=== PATIENT | female | born 1995 | race Caucasian/White ===

== ENCOUNTER → 2018-09-24 10:47 | Outpatient (CLI) | payer BC, SELFPAY ==
[2018-09-24 13:03] LABS: Follicle Stimulating Hormone 1.9 mIU/mL; Luteinizing Hormone 7.2 mIU/mL; Thyroid Stim Hormone (TSH) 1.63 uIU/mL (0.358-3.74)
[2018-09-26 09:54] LABS: DHEA Sulfate 179.6 ug/dL (110.0-431.7)
== END ==
PROVIDERS: Family Provider Family Medicine; PCP Family Medicine; Referring Provider Family Medicine; Visit Provider Family Medicine
DX: N94.10 Unspecified dyspareunia (principal)
CPT/HCPCS: 36415; 82627; 83001; 83002; 84443; 82626

== ENCOUNTER → 2019-05-20 | Outpatient (CLI) | payer OTHER, BC, SELFPAY ==
[2019-05-23 10:48] LABS: Probe Check PASS; Sample Adequacy Control PASS; Specimen Processing Control PASS; Trichomonas Vag DNA by PCR Negative (Negative)
[2019-05-23 10:58] LABS: Chlamydia Trachomatis by PCR Negative (Negative); Neisserai gonorrhoeae by PCR Negative (Negative); Probe Check PASS; Sample Adequacy Control PASS; Specimen Processing Control PASS
== END | disposition home or self-care (01) ==
LOC: LABSPEC 13:58
PROVIDERS: Visit Provider Obstetrics & Gynecology
DX: A59.9 Trichomoniasis, unspecified (principal); Z11.3 Encounter for screening for infections with a predominantly sexual mode of transmission
CPT/HCPCS: 87491; 87591; 87661

== ENCOUNTER → 2020-10-29 16:18 | Outpatient (CLI) | payer OTHER, SELFPAY ==
[2016-03-02 15:16] VITALS: BMI 26.5
[2020-10-29 17:22] LABS: Mean Corp Hgb Conc 33.3 g/dL (32-36); Mean Corpuscular Hgb 29.7 pg (27.0-32.0); Mean Platelet Vol. 9.9 fl (6.2-12.0); Platelet Count 301 K/mm3 (150-450); RBC Distribution Width CV 12.6 % (11.6-14.6); RBC Distribution Width SD 41.1 fl (35.1-43.9); Red Blood Count 4.72 M/mm3 (4.2-5.4); White Blood Count 10.4 K/mm3 (4.4-11.0)
[2020-10-29 17:40] LABS: Progesterone Level 0.53 ng/mL (See Comment)
[2020-10-29 17:49] LABS: Anion Gap 4 (5-15); BUN 12 mg/dL (7-18); BUN/Creat Ratio 17.3 RATIO (10-20); Chloride 106 mmol/L (98-107); Creatinine, Serum 0.69 mg/dL (0.55-1.02); EST Glomerular Filtration Rate 110 mL/min (>60); Est Glom Filt Rate - Afr Amer 133 mL/min (>60); Follicle Stimulating Hormone 3.2 mIU/mL; Glucose 82 mg/dL (74-106); Luteinizing Hormone 5.4 mIU/mL; Potassium 3.5 mmol/L (3.5-5.1); Prolactin 12.8 ng/mL; Sodium Level 138 mmol/L (136-145); T4 Free Direct 0.99 ng/dL (0.76-1.46); Thyroid Stim Hormone (TSH) 1.27 uIU/mL (0.358-3.74)
== END ==
PROVIDERS: Visit Provider Obstetrics & Gynecology
DX: Q51.0 Agenesis and aplasia of uterus (principal)
CPT/HCPCS: 36415; 80048; 82670; 83001; 83002; 84144; 84146; 84439; 84443; 85027

== ENCOUNTER → 2022-08-12 | Outpatient (CLI) | payer OTHER, SELFPAY | END | disposition home or self-care (01) | PROVIDERS: Visit Provider Family Medicine | DX: N39.0 Urinary tract infection, site not specified (principal) | CPT/HCPCS: 87086; 87088 ==

== ENCOUNTER 2024-09-12 14:48 | Emergency (ER) | payer OTHER, SELFPAY ==
[2024-09-12 14:49] VITALS: BP 123/68; PULSE 72; RESP 16; TEMP 36.4; O2SAT 100
--- NOTE | 2024-09-12 15:30 | RAD_ITS ---
PROCEDURE: ANKLE MIN 3 VIEWS REASON FOR EXAM: Trauma TECHNIQUE: 3 views of the right ankle COMPARISON: None. FINDINGS: RIGHT ANKLE: Distal right comminuted fibular fracture. Right medial malleolar fracture. Mild anterior dislocation of the fibula and medial malleolar fracture. Ankle mortise is intact. Mild soft tissue swelling about the medial malleolus RAD/Ankle min 3 Views IMPRESSION: Distal right comminuted fibular fracture and right medial malleolar fracture wi th mild anterior displacement. Reading Location: [facility]
[2024-09-12] MEDS: oxyCODONE 5 MG Tablet PO (17:51)
--- NOTE | 2024-09-12 17:52 | CT_ITS ---
PROCEDURE: Noncontrast CT of the right ankle. REASON FOR EXAM: Right ankle fractures TECHNIQUE: Contiguous unenhanced axial CT images were obtained through the right ankle. Sagittal and coronal reformats were created. COMPARISON: Right ankle radiographs from the same day. FINDINGS: Approximately 8.1 cm from the distal tip of the fibula, there is a minimally displaced oblique slightly comminuted fracture of the distal right fibular diaphysis. There is widening of the distal tibial- fibular syndesmosis. Mildly displaced oblique fracture at the base of the medial malleolus. The distal tibia is subluxed medially a proximally 9 mm. The included tarsal bones and metatarsals, as well as the talus and calcaneus appear intact. No posterior distal tibia fracture. There is edema of the soft tissues and subcutaneous fat of the right ankle. No soft tissue gas densities are demonstrated. CT/Extremity Lower without Contra IMPRESSION: Displaced bimalleolar fracture of the right ankle as above. 9 mm medial subluxation of the distal tibia relative to the superior articular surface of the talus. No posterior distal tibial fracture. The included tarsal bones, talus, and calcaneus appear intact. One or more dose reduction techniques were used (e.g., Automated exposure contr ol, adjustment of the mA and/or kV according to patient size, use of iterative reconstruction technique). [facility]
[2024-09-12 18:22] VITALS: BP 129/72; PULSE 75; RESP 18; TEMP 36.9; O2SAT 99
--- NOTE | 2024-09-12 18:49 | EDS_ITS ---
HPI History of Present Illness Chief Complaint: Lower Extremity Injury Informant: patient Narrative Narrative: Patient is a 29-year-old female presenting after mechanical fall at work. 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 She got out of the vehicle and slipped and fell. She merely had pain in her right ankle. She came in for further evaluation. Denies any numbness or tingling. Notes that her toes do feel cold now because she has had her socks off. Did not hit her head when she fell. Not any blood thinners. Denies any past medical history. Denies any concern for . [facility] Medical History Ankle injuries Bee sting Home Medications ?Medication ?Instructions ?Recorded ?Last Taken ?Type prednisone 10 mg tablet 10 mg PO DAILY #30 tabs 04/26 11/17 Unknown Rx oxycodone 5 mg tablet 5 mg PO Q6H PRN pain 3 days #12 09/12/24 Unknown Rx tabs Allergy/AdvReac Type Severity Reaction Status Date / Time No Known Allergies Allergy Verified 05/09/24 07:13 Social History Smoking Status: Never smoker ROS ROS ED Constitutional Constitutional ED: Denies chills or fever(s) Gastrointestinal Gastrointestinal: Denies nausea or vomiting Musculoskeletal Musculoskeletal: Reports other Details: Right ankle pain Integumentary Denies rash Neurologic Neurologic: Denies paresthesias or weakness Hematologic/Lymphatic Hematologic/Lymphatic: Denies easy bleeding or easy bruising EXAM Physical Exam Const Vital Signs: 09/12/24 14:49 09/12/24 18:22 Temperature 97.6 F L 98.5 F Temperature Source Temporal Pulse Rate 72 75 Respiratory Rate 16 18 Blood Pressure 123/68 H 129/72 H Blood Pressure Mean 86 91 Pulse Ox 100 99 Oxygen Delivery Method Room Air Positive well nourished and well developed General Appearance ED: well developed and NAD HEENT Reports moist mucous membranes normocephalic and atraumatic Chest Wall inspection of chest normal Resp normal respiratory effort Cardio regular rate and regular rhythm Cardio Narrative: 2+ DP pulses Extremity Extremity Narrative: Swelling but no obvious deformity to the right ankle. Decreased range of motion of the foot secondary to pain and swelling. Significant tenderness of the ankle over the medial and lateral aspect of the malleoli. No significant bony tenderness of the foot. No tenderness over the fibular head. Normal-appearing knee. Normal range of motion. Compartments of the calf are soft. No palpable cords Neuro oriented x3, moves all extremities and no sensory deficits noted Sensorium / Orientation: alert Motor Exam: Negative for general weakness Psych mental status grossly normal Skin Skin Narrative: Very superficial abrasion noted to the anterior aspect of the forefoot MDM MDM MDM Narrative Medical decision making narrative: Patient evaluated for right ankle pain after fall. Protocol x-ray obtained reviewed by myself as well as radiology shows distal right comminuted fibular fracture and right medial malleoli are fracture with mild anterior displacement. Patient is neuro vastly intact. Did discuss the case with Dr. Walker, podiatry on-call. He does request a CT, recommends posterior slab stirrup splint, crutches and outpatient follow-up. He does agree that he does not think that ER reduction is indicated at this time. Patient is given a dose of oxycodone emergency room pain control. She declines further pain medicine at this time. Splint placed. Patient tolerated procedure well. Neurovascularly intact afterwards. Given crutches. We discharged home with prescription for oxycodone and close outpatient follow-up. Given return precautions. Counseled on splint care. Radiography Diagnostic Testing: Clinical Impression(s) from Imaging Studies Ankle X-Ray 09/12/24 15:30 IMPRESSION: Distal right comminuted fibular fracture and right medial malleolar fracture with mild anterior displacement. Reading Location: [facility] Lower Extremity CT 09/12/24 17:52 IMPRESSION: Displaced bimalleolar fracture of the right ankle as above. 9 mm medial subluxation of the distal tibia relative to the superior articular surface of the talus. No posterior distal tibial fracture. The included tarsal bones, talus, and calcaneus appear intact. One or more dose reduction techniques were used (e.g., Automated exposure control, adjustment of the mA and/or kV according to patient size, use of iterative reconstruction technique). Reading Location: [facility] Management Discussion w/another healthcare provider: [employer] Procedures Lower Extremity Splints Lower Extremity Splint: Orthoglass, Stirrup and - (Posterior slab with stirrup) Splint Fabrication: Fabricated Location: Right Discharge Plan Triage Chief Complaint: Lower Extremity Injury ED Provider: Lucille Berry Dx/Rx/DC Orders Clinical Impression: Ankle fracture, right Instructions: ED Ankle Fracture Prescriptions: New oxycodone 5 mg tablet 5 mg PO Q6H PRN (Reason: pain) 3 Days Qty: 12 0RF No Action prednisone 10 mg tablet 10 mg PO DAILY Qty: 30 0RF Rx Instructions: 4 tablets daily x3 days, then 3 tablets daily x3 days, then 2 tablets daily x3 days, then 1 tablet daily x3 days Stand Alone Forms: Work Status Form Primary Care Provider: Aileen Sequeira Referrals: Aileen Sequeira MD [Primary Care Provider] - Rustam Walker DPM [Med Staff - Active Staff] - Activity Restrictions/Additional Instructions: Use crutches. Continue to ice through the splint. Do not but weight on the right foot. Please call podiatry office tomorrow to arrange close outpatient follow-up. Likely will need surgery on your ankle. As we discussed please take stool softeners or MiraLAX while taking pain medication if needed. If possible it is okay for you to just take ibuprofen and Tylenol for pain control. Print Language: Turkish Disposition Disposition: Home, Self Care Discharge Date/Time: 09/12/24 20:13
== END 2024-09-12 20:13 | disposition home or self-care (01) ==
PROVIDERS: Emergency Provider Emergency Medicine; PCP Family Medicine; Referring Provider Emergency Medicine; Visit Provider Emergency Medicine
DX: S82.841A Displaced bimalleolar fracture of right lower leg, initial encounter for closed fracture (principal); S90.811A Abrasion, right foot, initial encounter; W01.0XXA Fall on same level from slipping, tripping and stumbling without subsequent striking against object, initial encounter; Y99.0 Civilian activity done for income or pay
CPT/HCPCS: 29515; 73610; 73700; 99283